=== PATIENT | female | born 1930 | race Caucasian/White ===

== ENCOUNTER 2016-05-02 15:43 | Emergency (ER) | payer BC, OTHER ==
[~2016-05-02 15:43] MED LIST: FISHOIL PO; GLUCTAB18 PO; LEVAAER2 INH; LISI5TAB3 PO; NTRS PO; PERI-COLACE PO; SOTA80TA55 PO; TIOTCAP INH; VITAMIN D-3 PO; mucinex PO
[2016-05-02 15:49] VITALS: Ht 162.6 cm
[2016-05-02] MEDS ORDERED: SODIUM CHLORIDE 0.9% 1000ML 1,000 ML IV STA (16:53)
[2016-05-02] MEDS ORDERED: CEFTRIAXONE SOD INJ 1 GM ADDVIAL IV STA (16:53)
[2016-05-02] MEDS ORDERED: LEVA45AE INH (17:04)
[2016-05-02] MEDS ORDERED: SPRIN/30 INH (17:04)
[2016-05-02] MEDS ORDERED: LISI-729 PO (17:04)
[2016-05-02] MEDS ORDERED: OMEG12006 PO (17:04)
[2016-05-02 17:05] VITALS: O2SAT 94
[2016-05-02] MEDS ORDERED: CHLOTAB10 PO (17:13)
[2016-05-02] MEDS ORDERED: CHOL100027 PO (17:17)
--- NOTE | 2016-05-02 17:18 | DIAGNOSTIC IMAGING REPORT ---
CHEST ONE VIEW PORTABLE CLINICAL HISTORY: Change in mental status. COMPARISON STUDY: 02/12/2014 FINDINGS: The cardiac and mediastinal contours remain stable. Electronic device projects over the left lower chest possibly representing an event recorder. There is mild pulmonary vascular congestion. There is no lobar consolidation. There are ill-defined lung nodules versus areas of rib sclerosis. Fiducial markers are visualized within the left apex. There is mild basilar atelectasis.[ IMPRESSION: 1. Elevation interstitium, suggesting mild pulmonary vascular congestion 2. Ill-defined lung nodules versus areas of rib sclerosis. Electronically signed by: Porter Hinojosa M.D. 05/02/2016 5:17 PM Dictated Date/Time: 05/02/2016 5:15 PM
[2016-05-02] MEDS ORDERED: NTRGSL/4 UT (17:21)
[2016-05-02] MEDS ORDERED: METO25TA56 PO (17:21)
[2016-05-02] MEDS ORDERED: ASPI81TA28 PO (17:21)
[2016-05-02] MEDS ORDERED: MOME100A INH (17:21)
[2016-05-02] MEDS ORDERED: ROPI1TAB PO (17:21)
[2016-05-02] MEDS ORDERED: FURO-85 PO (17:21)
[2016-05-02] MEDS ORDERED: AMIO200T4 PO (17:21)
[2016-05-02] MEDS ORDERED: MULTCAP33 PO (17:21)
[2016-05-02] MEDS ORDERED: ALEN70TA3 PO (17:21)
[2016-05-02] MEDS ORDERED: XLTOPS OPB (17:21)
[2016-05-02] MEDS ORDERED: MIRT15TA53 PO (17:21)
[2016-05-02 17:52] LABS: BASO % 0.2 %; BASO ABS # 0.03 K/uL (0-0.2); COMPLETE YES; HEMATOCRIT 36.5 % (37-47); IG% 0.5 %; LYMPH % 12.7 %; LYMPH ABS # 1.79 K/uL (1.2-3.4); MEAN CELL VOLUME 90.1 fL (80-100); MEAN CORPUSCULAR HEMOGLOBIN 30.9 pg (25-34); MEAN CORPUSCULAR HGB CONC 34.2 g/dl (32-36); MEAN PLATELET VOLUME 9.9 fL (7.4-10.4); MONO % 4.7 %; NEUT % 81.9 %; PLATELET COUNT 226 K/uL (130-400); RED BLOOD COUNT 4.05 M/uL (4.2-5.4); WHITE BLOOD COUNT 14.12 K/uL (4.8-10.8)
[2016-05-02 18:00] LABS: URINE APPEARANCE CLEAR (CLEAR); URINE BILIRUBIN NEG (NEG); URINE COLOR YELLOW; URINE EPITHELIAL CELL AUTO 0-5 /lpf (0-5); URINE NITRITE NEG (NEG); URINE SPECIFIC GRAVITY 1.017 (1.000-1.030); UROBILINOGEN NEG (NEG); ZZURINE CULT IF INDIC CATH YES
[2016-05-02 18:04] LABS: MANUAL MICROSCOPIC REQUIRED? NO; REVIEW REQ? NO
--- NOTE | 2016-05-02 18:09 | DIAGNOSTIC IMAGING REPORT ---
CT HEAD WITHOUT CONTRAST (CT) CLINICAL HISTORY: Change in mental status. Weakness. COMPARISON STUDY: 03/03/2013 TECHNIQUE: Axial CT of the brain is performed from the vertex to the skull base. IV contrast was not administered for this examination. CT DOSE: 614.27 mGy.cm FINDINGS: No intra or extra-axial mass lesions are visualized. There is no CT evidence of acute cortical infarction. There is no evidence of midline shift. There is no acute hemorrhage. No calvarial fractures are visualized. There are moderately extensive white matter hypodensities likely on a small vessel basis. 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 There is no evidence of pathologic ventricular dilatation. There are bilateral sphenoid sinus air-fluid levels. There is partial opacification of multiple ethmoid air cells. There is small maxillary sinus air-fluid levels. IMPRESSION: 1. Interval development of extensive paranasal sinus disease 2. Extensive white matter disease likely on a small vessel basis 3. No acute intracranial findings Electronically signed by: Porter Hinojosa M.D. 05/02/2016 6:08 PM Dictated Date/Time: 05/02/2016 6:06 PM
[2016-05-02 18:10] LABS: ALT/SGPT 62 U/L (12-78); BLOOD UREA NITROGEN 27 mg/dl (7-18); BUN/CREATININE RATIO 28.1 (10-20); CALCIUM 9.3 mg/dl (8.5-10.1); CARBON DIOXIDE 24 mmol/L (21-32); CHLORIDE 100 mmol/L (98-107); CREATININE 0.95 mg/dl (0.60-1.20); GLUCOSE 91 mg/dl (70-99); POTASSIUM 3.6 mmol/L (3.5-5.1); SODIUM 137 mmol/L (136-145)
[2016-05-02 18:24] LABS: ALKALINE PHOSPHATASE 76 U/L (45-117); AST/SGOT 85 U/L (15-37); CKMB/CK RATIO 0.7 (0-3.0); THYROID STIMULATING HORMONE 0.572 uIu/ml (0.300-4.500)
[2016-05-02] MEDS ORDERED: AMOX500C3 PO (19:03)
--- NOTE | 2016-05-02 19:04 | EMERGENCY ROOM VISIT NOTE ---
History Report prepared by [place]ine: Qi Scott Under the Supervision of: Dr. Antonio Box D.O. First contact with patient: 16:52 Chief Complaint: STROKE SYMPTOMS Stated Complaint: STROKE SYMPTOMS History of Present Illness The patient is an 85 year old female who presents to the Emergency Room with complaints of possible stroke symptoms that occurred yesterday. She is accompanied by family. The patient normally lives with her daughter and is independent when her daughter is at work during the day. She usually ambulates with a walker. Her family reports she developed cold symptoms and congestion 3 days ago. 2 days ago, she started to "not respond when she was spoken too". She also has been increasingly weak and has been dragging her left leg. Yesterday, when her daughter spoke to her, she states the patient went to get out of her chair, when she became disoriented, "just stood there" and became incontinent of both bowel and bladder. Today, the patient complained of nausea and did not want to eat at all, so her family called her doctor, who referred them to the ED. The patient denies any pain currently. Her daughter reports her stools have been "really loose" recently. The patient does not take daily blood thinners. Source of History: patient, family (daughter) Onset: yesterday Position: other (global) Timing: resolved Associated Symptoms: + diarrhea, + nausea Review of Systems See HPI for pertinent positives & negatives. A total of 10 systems reviewed and were otherwise negative. Past Medical & Surgical Medical Problems: (1) Benign hypertension (2) Bronchitis (3) Heart disease (4) Pelvic fracture (5) Rotator cuff repair Family History FH: cancer FH: lung disease Social History Smoking Status: Never Smoker Alcohol Use: none Drug Use: none Marital Status: Housing Status: lives with family Occupation Status: retired Current/Historical Medications Scheduled Alendronate/Cholecalciferol (Fosamax+D 70MG/5600 Iu), 1 TABLET PO WK Amiodarone Hcl (Cordarone), 200 MG PO DAILY Amoxicillin (Amoxil), 500 MG PO TID Aspirin (Aspirin Ec), 81 MG PO DAILY Calcium Carbonate-Vitamin D (Calcium 600 + D), 1 TAB PO DAILY Chlorpheniramine-Dm (Coricidin Hbp Cough & Col), 2 TAB PO Q6 Cholecalciferol (Vitamin D 1000 Unit), 2,000 INTER.UNIT PO DAILY Esomeprazole Magnesium (Nexium), 40 MG PO BID Furosemide (Lasix), 20 MG PO DAILY Glucosamine-Chondroitin (Osteo Bi-Flex Regular Str), 1 TAB PO DAILY Latanoprost (Latanoprost), 1 DROP OPB HS Levothyroxine Sodium (Synthroid), 112 MCG PO DAILY Lisinopril (Prinivil), 2.5 MG PO DAILY Metoprolol Tartrate (Lopressor) (Lopressor), 12.5 MG PO BID Mirtazapine (Mirtazapine), 22.5 MG PO DAILY Mometasone Furoate-Formoterol (Dulera 100/5 Mcg), 2 PUFF INH BID Multiple Vitamins W/ Minerals (Preservision Areds), 1 CAP PO DAILY Nitroglycerin (Nitrostat), 0.4 MG UT PRN [place]-3 Fatty Acids ([place] 3), 1 CAP PO DAILY Ropinirole (Requip), 1.5 MG PO HS Sotalol Hcl (Betapace), 80 MG PO BID Scheduled PRN Acetaminophen (Tylenol), 1,000 MG PO Q4 PRN for Pain Levalbuterol Tartrate (Levalbuterol Tartrate Hfa), 2 PUFF INH QID PRN for SOB/ Wheezing Allergies Coded Allergies: Clindamycin (Verified Allergy, Unknown, UNKNOWN, 05/02/16) Codeine (Verified Adverse Reaction, Mild, UNKNOWN, 05/02/16) Physical Exam Vital Signs Date Time Temp Pulse Resp B/P Pulse Ox O2 Delivery O2 Flow Rate FiO2 05/02/16 18:43 85 24 162/80 96 Room Air 05/02/16 18:38 87 24 97 05/02/16 18:33 88 25 98 05/02/16 18:28 90 24 98 05/02/16 18:23 89 24 92 05/02/16 18:18 91 22 97 05/02/16 18:13 90 23 96 05/02/16 17:48 93 26 05/02/16 17:43 91 22 05/02/16 17:38 91 25 05/02/16 17:33 91 25 05/02/16 17:28 91 22 05/02/16 17:17 91 05/02/16 17:05 94 Nasal Cannula 2.0 05/02/16 17:05 94 Nasal Cannula 2.0 05/02/16 17:04 37.2 92 18 162/80 94 Nasal Cannula 2.0 05/02/16 16:57 162/80 05/02/16 15:49 37.5 98 18 159/84 92 Room Air Physical Exam VITAL SIGNS: were reviewed as above. GENERAL:Non-toxic in appearance, appears to be generally weak. SKIN: Warm dry and pink. HEAD: Normocephalic and atraumatic. OROPHARYNX: Is clear and moist NECK: Supple without lymphadenopathy or meningismus. LUNGS: clear. HEART: Regular rate and rhythm. ABDOMEN: Soft and nontender. EXTREMITIES: Warm and well perfused. NEUROLOGICALLY: Awake alert and oriented without focal deficit. Cranial nerves 2 -12 are intact. There is no pronator drift. Cerebellar testing is within normal limits. There is no nystagmus. There is no facial droop. Speech is clear. Vision is grossly normal. MUSCULOSKELETAL: Good muscle tone. No evidence of trauma. Medical Decision & Procedures ER Provider Diagnostic Interpretation: This X-Ray was reviewed and interpreted by myself and the radiologist. CHEST ONE VIEW PORTABLE IMPRESSION: 1. Elevation interstitium, suggesting mild pulmonary vascular congestion 2. Ill-defined lung nodules versus areas of rib sclerosis. Electronically signed by: Porter Hinojosa M.D. 05/02/2016 5:[address] scan was reviewed and interpreted by the radiologist and reviewed by myself. CT HEAD WITHOUT CONTRAST (CT) IMPRESSION: 1. Interval development of extensive paranasal sinus disease 2. Extensive white matter disease likely on a small vessel basis 3. No acute intracranial findings Electronically signed by: Porter Hinojosa M.D. 05/02/2016 6:08 PM Laboratory Results 05/02/16 17:35 Red Blood Count 4.05, Mean Corpuscular Volume 90.1, Mean Corpuscular Hemoglobin 30.9, Mean Corpuscular Hemoglobin Concent 34.2, Mean Platelet Volume 9.9, Neutrophils (%) (Auto) 81.9, Lymphocytes (%) (Auto) 12.7, Monocytes (%) (Auto) 4.7, Eosinophils (%) (Auto) 0.0, Basophils (%) (Auto) 0.2, Neutrophils # (Auto) 11.56, Lymphocytes # (Auto) 1.79, Monocytes # (Auto) 0.67, Eosinophils # (Auto) 0.00, Basophils # (Auto) 0.03 05/02/16 17:35 Test 05/02/16 17:35 05/02/16 17:45 White Blood Count 14.12 K/uL (4.8-10.8) Red Blood Count 4.05 M/uL (4.2-5.4) Hemoglobin 12.5 g/dL (12.0-16.0) Hematocrit 36.5 % (37-47) Mean Corpuscular Volume 90.1 fL (80-100) Mean Corpuscular Hemoglobin 30.9 pg (25-34) Mean Corpuscular Hemoglobin Concent 34.2 g/dl (32-36) Platelet Count 226 K/uL (130-400) Mean Platelet Volume 9.9 fL (7.4-10.4) Neutrophils (%) (Auto) 81.9 % Lymphocytes (%) (Auto) 12.7 % Monocytes (%) (Auto) 4.7 % Eosinophils (%) (Auto) 0.0 % Basophils (%) (Auto) 0.2 % Neutrophils # (Auto) 11.56 K/uL (1.4-6.5) Lymphocytes # (Auto) 1.79 K/uL (1.2-3.4) Monocytes # (Auto) 0.67 K/uL (0.11-0.59) Eosinophils # (Auto) 0.00 K/uL (0-0.5) Basophils # (Auto) 0.03 K/uL (0-0.2) RDW Standard Deviation 48.9 fL (36.4-46.3) RDW Coefficient of Variation 14.7 % (11.5-14.5) Immature Granulocyte % (Auto) 0.5 % Immature Granulocyte # (Auto) 0.07 K/uL (0.00-0.02) Anion Gap 13.0 mmol/L (3-11) Estimated GFR () 62.4 Estimated GFR (Non- 53.9 BUN/Creatinine Ratio 28.1 (10-20) Calcium Level 9.3 mg/dl (8.5-10.1) Magnesium Level 2.0 mg/dl (1.8-2.4) Total Bilirubin 0.6 mg/dl (0.2-1) Direct Bilirubin 0.2 mg/dl (0-0.2) Aspartate Amino Transf (AST/SGOT) 85 U/L (15-37) Alanine Aminotransferase (ALT/SGPT) 62 U/L (12-78) Alkaline Phosphatase 76 U/L (45-117) Total Creatine Kinase 1034 U/L (26-192) Creatine Kinase MB 7.2 ng/ml (0.5-3.6) Creatine Kinase MB Ratio 0.7 (0-3.0) Troponin I 0.027 ng/ml (0-0.045) Total Protein 7.5 gm/dl (6.4-8.2) Albumin 3.4 gm/dl (3.4-5.0) Lipase 124 U/L (73-393) Thyroid Stimulating Hormone (TSH) 0.572 uIu/ml (0.300-4.500) Urine Color YELLOW Urine Appearance CLEAR (CLEAR) Urine pH 6.0 (4.5-7.5) Urine Specific [place] 1.017 (1.000-1.030) Urine Protein 1+ (NEG) Urine Glucose (UA) NEG (NEG) Urine Ketones 1+ (NEG) Urine Occult Blood 3+ (NEG) Urine Nitrite NEG (NEG) Urine Bilirubin NEG (NEG) Urine Urobilinogen NEG (NEG) Urine Leukocyte Esterase SMALL (NEG) Urine WBC (Auto) >30 /hpf (0-5) Urine RBC (Auto) 5-10 /hpf (0-4) Urine Hyaline Casts (Auto) 1-5 /lpf (0-5) Urine Epithelial Cells (Auto) 0-5 /lpf (0-5) Urine Bacteria (Auto) 3+ (NEG) Laboratory results as stated above per my review. Medications Administered Medications (Trade) Dose Ordered Sig/Geovanna Route Start Time Stop Time Status Last Admin Dose Admin Sodium Chloride (Nss 1000ml) 1,000 ml @ 999 mls/hr Q1H1M STAT IV 05/02/16 16:53 05/02/16 17:53 DC 05/02/16 17:17 999 MLS/HR Ceftriaxone Sodium (Rocephin Inj) 1 gm NOW STAT IV 05/02/16 16:53 05/02/16 16:58 DC 05/02/16 17:17 1 GM ECG Indication: weakness Rate (beats per minute): 91 Rhythm: sinus rhythm Findings: no acute ischemic change, no ectopy, other (significant baseline artifact) ED Course 170: Previous medical records were reviewed. The patient was evaluated in room A11B. A complete history and physical examination was performed. 165: Rocephin 1 gm IV, NSS 1000 ml @ 999 mls/hr IV. 185: I reevaluated the patient. She is feeling well and resting comfortably. I discussed her results and discharge instructions and she and her family verbalized complete understanding and agreement. Medical Decision Differential includes acute coronary syndrome, myocardial infarction, CVA, TIA, anemia, infection, pneumonia, UTI, pyelonephritis, poor nutrition, dehydration, electrolyte disturbance,hypoglycemia. This is an 85-year-old female who presents to the ED with a chief complaint of cold symptoms for the past couple of days. The patient also has been feeling increasingly weak. The nurse's note stated that the patient was dragging her left leg. She's had some mild bowel bladder incontinence. She is also had some decreased by mouth intake. She normally walks with a walker. Family states that she has been slightly more disoriented than usual. Her vital signs are stable. Oxygen saturations were 92% on room air. She is in no distress. She has no focal weaknesses on exam. Her exam was otherwise unremarkable. White blood cell count is 14. The BUN is 27. The urine suggest infection. Total CK was 1034. TSH is normal. Troponin is negative. CT scan of the sinuses reveals findings suggesting sinusitis. Chest x-ray did not show acute disease. The patient was treated with IV fluids as well as IV Rocephin and by mouth amoxicillin. She was discharged with a prescription for amoxicillin. She is felt to be stable for discharge and outpatient follow-up. Impression Primary Impression: Urinary tract infection Additional Impressions: Dehydration Sinusitis Scribe Attestation The scribe's documentation has been prepared under my direction and personally reviewed by me in its entirety. I confirm that the note above accurately reflects all work, treatment, procedures, and medical decision making performed by me. Departure Information Dispostion Home / Self-Care Prescriptions Amoxicillin (AMOXIL) 500 Mg Cap 500 MG PO TID, #30 CAP Prov: Antonio Box D.O. 05/02/16 Referrals No Doctor, Assigned (PCP) Patient Instructions ED Sinusitis Abx Tx, My [facility], UTI Additional Instructions Amoxicillin as prescribed for 10 days. Follow-up with your doctor for recheck. Return for worsening or new concerns. Increase daily fluid intake. Problem Qualifiers
[2016-05-02] MEDS ORDERED: AMOXICILLIN 250 MG CAP PO STA (19:05)
[2016-05-02 19:48] VITALS: BP 162/80; PULSE 85; TEMP 37.2; O2SAT 96
[2016-05-02] MEDS ORDERED: LEVO112T2 PO (23:47)
[2016-05-02] MEDS ORDERED: CALC-20 PO (23:47)
[2016-05-02] MEDS ORDERED: NXM/40 PO (23:51)
[2016-05-02] MEDS ORDERED: ACET-1256 PO (23:54)
--- NOTE | 2016-05-04 15:00 | Pharmacy Progress Note ---
ED Pharmacist Culture FollowUp Date of Service: May 04, 2016. Patient's urine cx from 05/02/16 is growing Klebsiella pneumonia. She was dx with UTI and sinusitis during her ER visit and was discharged w/ Rx for Amoxil 500mg PO TID. Amoxil will not cover this organism (not tested on panel but <1% susceptible on antibiogram). Reviewed case w/ Dr Price, the decision was made to D/C Amoxil and begin Augmentin 875mg PO BID x 7 days. Attempted to reach the patient and/or family w/ ph # provided ([phone]) however there was no answer - I did leave a message asking for a return call.
--- NOTE | 2016-05-05 11:06 | Pharmacy Progress Note ---
ED Pharmacist Culture FollowUp Date of Service: May 05, 2016. May 05, 2016. Again tried to reach this patient using the phone number provided ([phone]) . There was no answer but I did leave a message. May 04, 2016. Patient's urine cx from 05/02/16 is growing Klebsiella pneumonia. She was dx with UTI and sinusitis during her ER visit and was discharged w/ Rx for Amoxil 500mg PO TID. Amoxil will not cover this organism (not tested on panel but <1% susceptible on antibiogram). Reviewed case w/ Dr Price, the decision was made to D/C Amoxil and begin Augmentin 875mg PO BID x 7 days. Attempted to reach the patient and/or family w/ ph # provided ([phone]) however there was no answer - I did leave a message asking for a return call.
--- NOTE | 2016-05-06 13:48 | Pharmacy Progress Note ---
ED Pharmacist Culture FollowUp Date of Service: May 06, 2016. Patient's daughter called back today. I advised we needed to stop the Amoxicillin Rx and begin a new Rx for Augmentin. She asked I call the Rx to [facility] in [facility] ([phone]) Rx for Augmenting 875mg PO BID x 7 days, no refill, Dr Price called to the above pharmacy - given directly to the [facility] verbally.
== END 2016-05-02 19:50 | disposition home or self-care (01) ==
LOC: C.EDB 15:45 → C.EDA 19:50
DX: N39.0 Urinary tract infection, site not specified (principal); I10 Essential (primary) hypertension; Z79.82 Long term (current) use of aspirin; E86.0 Dehydration; J32.9 Chronic sinusitis, unspecified